=== PATIENT | female | born 1985 | race Caucasian/White ===

== ENCOUNTER 2017-01-25 11:15 | Emergency (ER) | payer SELFPAY ==
[~2017-01-25 11:15] MED LIST: ALBUTEROL0.83 MG/ML IH; CIPRO PO; LEVOFLOXACIN500 MG PO; MEDROL DOSEPAK4 MG PO; PYRIDIUM PO
[2017-01-25 11:35] LABS: URINE SOURCE CLEAN CATCH
[2017-01-25 11:38] LABS: URINE APPEARANCE CLEAR; URINE BILIRUBIN NEG (NEG); URINE BLOOD 3+ (NEG); URINE COLOR YELLOW; URINE GLUCOSE NEG (NORM); URINE KETONE NEG (NEG); URINE LEUKOCYTE ESTERASE 3+ (NEG); URINE NITRATE NEG (NEG); URINE PROTEIN 1+ (NEG); URINE UROBILINOGEN 0.2 MG/DL (NORM)
[2017-01-25 11:40] LABS: MICRO INDICATED? YES
[2017-01-25 11:44] LABS: CULTURE INDICATED? YES; URINE BACTERIA 1+ (NEG); URINE SQUAMOUS EPITHELIAL CELL OCCAS /[HPF]; URINE WBC 100-200 /[HPF] (0-5)
== END 2017-01-25 12:10 | disposition home or self-care (01) ==
LOC: SED 11:15
PROVIDERS: Physician Assistant
DX: N30.00 Acute cystitis without hematuria (principal); R03.0 Elevated blood-pressure reading, without diagnosis of hypertension; J45.909 Unspecified asthma, uncomplicated; F17.210 Nicotine dependence, cigarettes, uncomplicated; Z88.0 Allergy status to penicillin; Z88.2 Allergy status to sulfonamides
CPT/HCPCS: 81003; 84703; 87086; 87088; 87186; 99283